=== PATIENT | female | born 1975 | race African-American/Black ===

== ENCOUNTER 2017-03-05 21:15 | Emergency (ER) | payer MEDICAID, OTHER ==
[~2017-03-05] VITALS: Ht 175.3 cm; Wt 68.0 kg
[~2017-03-05 21:15] MED LIST: METOPROLOL
[2017-03-05 21:21] VITALS: BP 145/92
== END 2017-03-05 23:00 | disposition left against medical advice (07) ==
LOC: ER 22:28
DX: Z53.21 Procedure and treatment not carried out due to patient leaving prior to being seen by health care provider (principal)

== ENCOUNTER 2017-11-16 19:37 | Emergency (ER) | payer MEDICAID, OTHER ==
[~2017-11-16] VITALS: Ht 175.3 cm; Wt 63.0 kg
[2017-11-16 21:39] LABS: CLARITY URINE CLEAR (CLEAR); COLOR URINE YELLOW (YELLOW); KETONES URINE NEGATIVE (NEGATIVE); LEUKOCYTE ESTERASE URINE TRACE (NEGATIVE); NITRITE URINE NEGATIVE (NEGATIVE); OCCULT BLOOD URINE 2+ (NEGATIVE); PROTEIN URINE NEGATIVE (NEGATIVE); SPECIFIC GRAVITY URINE 1.013 (1.005-1.030); UROBILINOGEN URINE 0.2 E.U./dL (0.2-1.0)
[2017-11-17] MEDS ORDERED: SODIUM CHLORIDE 0.9% 1,000 ML IV ONE (06:04)
[2017-11-17 06:40] LABS: BASOPHILS % 1.2 % (0.0-2.0); EOSINOPHILS % 2.8 % (0.0-5.0); HEMATOCRIT. 31.7 % (36.0-48.0); HEMOGLOBIN. 10.1 g/dL (12.0-16.0); LYMPHOCYTES % 50.1 % (20.0-50.0); MEAN CORPUSCULAR HEMOGLOBIN 24.2 pg (28.0-32.0); MEAN CORPUSCULAR VOLUME 75.9 fL (81.0-99.0); MEAN PLATELET VOLUME 8.7 fl (7.4-10.4); MONOCYTES % 7.7 % (2.0-8.0); NEUTROPHILS % 38.2 % (40.0-76.0); PLATELET 206 x1000/uL (130-400); RED BLOOD CELL COUNT 4.18 mill/uL (4.2-5.4); RED CELL DISTRIBUTION WIDTH 15.2 % (11.6-14.6)
[2017-11-17 06:45] LABS: CHLORIDE 107 mEq/L (98-107)
[2017-11-17 06:49] LABS: PARTIAL THROMBOPLASTIN TIME 25.4 sec (23.4-31.0); PROTHROMBIN TIME 10.7 sec (9.4-11.6)
[2017-11-17 06:58] LABS: B-HCG QUANTITATIVE 170 mIU/mL (<3)
[2017-11-17 07:43] LABS: *AMPHETAMINES SCREEN URINE NEGATIVE (NEGATIVE); *BARBITURATES SCREEN URINE NEGATIVE (NEGATIVE); *BENZODIAZEPINES SCREEN URINE NEGATIVE (NEGATIVE); *COCAINE SCREEN URINE NEGATIVE (NEGATIVE); METHADONE URINE SCREEN NEGATIVE (NEGATIVE); OPIATES URINE SCREEN NEGATIVE (NEGATIVE)
[2017-11-17 07:46] LABS: CANNABINOID URINE SCREEN PRESUMTIVE POSITIVE (NEGATIVE); PHENCYCLIDINE URINE SCREEN PRESUMTIVE POSITIVE (NEGATIVE)
[2017-11-17] MEDS ORDERED: DEXT 5%/0.45% NACL KCL 20MEQ/L 1,000 ML IV ONE (08:14)
[2017-11-17 09:30] VITALS: BP 157/90
== END 2017-11-17 09:59 | disposition home or self-care (01) ==
LOC: ER 19:37 → EDBEDREQTM 11-17 08:18 → EDBEDREQ 11-17 08:18 → ER 11-17 09:59 → CANBEDREQ 11-17 13:42
DX: O9A.211 Injury, poisoning and certain other consequences of external causes complicating pregnancy, first trimester (principal); T40.991A Poisoning by other psychodysleptics [hallucinogens], accidental (unintentional), initial encounter; T40.7X1A Poisoning by cannabis (derivatives), accidental (unintentional), initial encounter; O03.4 Incomplete spontaneous abortion without complication; O99.011 Anemia complicating pregnancy, first trimester; D64.9 Anemia, unspecified; O26.891 Other specified pregnancy related conditions, first trimester; E16.2 Hypoglycemia, unspecified; R26.89 Other abnormalities of gait and mobility; F17.200 Nicotine dependence, unspecified, uncomplicated; I10 Essential (primary) hypertension; F41.9 Anxiety disorder, unspecified; Z3A.00 Weeks of gestation of pregnancy not specified; Y92.89 Other specified places as the place of occurrence of the external cause
CPT/HCPCS: 36415; 76801; 76817; 80048; 80305; 81003; 81025; 82962; 84702; 85025; 85610; 85730; 86850; 86900; 86901; 93005; 96360; 99285; J7030; Z7610

== ENCOUNTER 2020-03-11 01:50 | Emergency (ER) | payer OTHER ==
[~2020-03-11] VITALS: Ht 175.3 cm; Wt 66.0 kg
[2020-03-11 01:53] VITALS: BP 171/118
[2020-03-11] MEDS ORDERED: IBUPROFEN 600MG TABLET PO ONE (02:45)
[2020-03-11] MEDS ORDERED: TETANUS, DIPHTHERIA, PERTUSSIS VAC/PF 0.5ML (>7YR OLD) IM ONE (02:45)
[2020-03-11] MEDS ORDERED: AMOXICILLIN/POTASSIUM CLAVULANATE 875/125MG TAB PO ONE (02:45)
== END 2020-03-11 03:24 | disposition home or self-care (01) ==
LOC: ER 01:50
DX: S61.452A Open bite of left hand, initial encounter (principal); S51.832A Puncture wound without foreign body of left forearm, initial encounter; S61.432A Puncture wound without foreign body of left hand, initial encounter; S61.431A Puncture wound without foreign body of right hand, initial encounter; S51.831A Puncture wound without foreign body of right forearm, initial encounter; X58.XXXA Exposure to other specified factors, initial encounter; Y92.89 Other specified places as the place of occurrence of the external cause; Y93.89 Activity, other specified
CPT/HCPCS: 90471; 90715; 99283